=== PATIENT | male | born 1965 ===

== ENCOUNTER 2020-03-19 10:14 | Outpatient (CLI) | payer OTHER | END 2020-03-19 10:15 | disposition short-term general hospital (02) | LOC: EMS 10:14 | PROVIDERS: ATTEND Surgery | DX: R07.81 Pleurodynia (principal); R42 Dizziness and giddiness; R55 Syncope and collapse; R53.1 Weakness; X50.0XXA Overexertion from strenuous movement or load, initial encounter; Y99.0 Civilian activity done for income or pay | CPT/HCPCS: A0425; A0429 ==